=== PATIENT | female | born 1995 | race Caucasian/White ===

== ENCOUNTER 2020-11-04 16:01 | Emergency (ER) | payer BC, OTHER ==
[~2020-11-04] VITALS: Ht 162.6 cm; Wt 70.3 kg
[~2020-11-04 16:01] MED LIST: Bactrim Ds Tab1 EACH PO; IBUP800 PO; Percocet 5-3251 EACH PO
== END 2020-11-04 18:41 | disposition home or self-care (01) ==
LOC: ER 16:01
DX: S29.012A Strain of muscle and tendon of back wall of thorax, initial encounter (principal); E86.1 Hypovolemia; F17.200 Nicotine dependence, unspecified, uncomplicated; X58.XXXA Exposure to other specified factors, initial encounter
CPT/HCPCS: 93005; 93010; 99283-25